=== PATIENT | male | born 1975 | race Caucasian/White ===

== ENCOUNTER → 2024-03-25 | Day surgery (SDC) | payer OTHER ==
[~2024-03-25] MED LIST: ACETAMINOPHEN 1000 MG/100 ML 100 ML IV ONE; ARIMIDEX1 MG PO; CLOMIPHENE CITR50 MG PO; DEXAMETHASONE SOD PHOS INJ 4 MG/ML SDV ONE; EPINEPHRINE HCL 1:1000 1ML 1 MG/ML AMP ONE; FENTANYL CITRATE/PF 100MCG/2 ML INJ ONE; LIDOCAINE HCL 2% LOCAL INJ 5 ML SDV VIAL INJ ONE; LYRICA75 MG PO; MIDAZOLAM HCL 2 MG/2 ML VIAL ONE; OMEPRAZOLE40 MG PO; ONDANSETRON HCL INJ 2MG/ML 2ML 2 MG/ML VIAL ONE; PLAQUENIL200 MG PO; PROPOFOL IV EMULSION 10 MG/ML 20 ML VIAL ONE; ROCURONIUM BROMIDE 1 ML IV ONE; SUCRALFATE1 GM PO; SUGAMMADEX SODIUM 200 MG/2 ML VIAL IV ONE; TESTOSTERONE INJ IM; ULTRAM 50MG50 MG PO; VITAMIN D31250 MCG; ZINC; [UNRECOGNIZED DRUG - OTHER]
[2024-03-25] MEDS: LACTATED RINGER'S 1,000 ML ONE (09:51)
[2024-03-25] MEDS: FENTANYL CITRATE/PF 100MCG/2 ML INJ ONE (13:40)
[2024-03-25 14:23] VITALS: BP 129/86; PULSE 84; RESP 18; O2SAT 97
== END | disposition home or self-care (01) ==
LOC: OR 09:20
PROVIDERS: ATTEND Otolaryngology Otolaryngology/Facial Plastic Surgery
DX: J34.2 Deviated nasal septum (principal); J33.0 Polyp of nasal cavity; J34.89 Other specified disorders of nose and nasal sinuses; G47.33 Obstructive sleep apnea (adult) (pediatric); E66.01 Morbid (severe) obesity due to excess calories; M06.9 Rheumatoid arthritis, unspecified; G89.29 Other chronic pain; F17.290 Nicotine dependence, other tobacco product, uncomplicated; Z79.899 Other long term (current) drug therapy
CPT/HCPCS: 30520; 31237; 88302; 88305; 88311; 93005; J0131; J0171; J1100; J2003; J2250; J2405; J2704; J3010; J7121; 88300; 88304